=== PATIENT | male | born 1965 | race Caucasian/White ===

== ENCOUNTER 2021-04-25 06:13 | Outpatient (REF) | payer OTHER, SELFPAY ==
[2021-04-25 06:34] LABS: MANUAL DIFF FLAG NO
[2021-04-25 07:20] LABS: Basophils Absolute Auto 0.1 X10*3/uL (0.0-0.2); Basophils Percent Auto 0.7 % (0-2); Eosinophils Absolute Auto 0.3 X10*3/uL (0.0-0.4); Eosinophils Percent Auto 3.5 % (0-4); Hematocrit 45.2 % (42-52); Hemoglobin 15.6 g/dl (14.0-18.0); Imm Gran Abs Auto 0.02 X10*3/uL (0.00-0.03); Imm Gran Pct Auto 0.3 % (0.0-0.4); Lymphocytes Absolute Auto 2.5 X10*3/uL (1.2-4.9); Lymphocytes Percent Auto 32.1 % (20-40); Mean Corpuscular HGB Conc 34.5 g/dl (31.0-36.0); Mean Corpuscular Hemoglobin 31.7 pg (27.0-33.0); Mean Corpuscular Volume 91.9 fL (80-98); Monocytes Absolute Auto 0.5 X10*3/uL (0.1-1.2); Monocytes Percent Auto 5.9 % (2-11); Neutrophils Absolute Auto 4.4 X10*3/uL (2.0-8.3); Neutrophils Percent Auto 57.5 % (45-73); Platelet Count 216 X10*3/uL (160-400); Red Blood Count 4.92 X10*6/uL (4.60-5.80); Red Cell Distribution Width 12.2 % (11.0-16.0); White Blood Count 7.7 X10*3/uL (4.8-10.8)
[2021-04-25 07:57] LABS: Alanine Aminotransferase 31 U/L (0-40); Alkaline Phosphatase 65 U/L (39-117); Anion Gap 14 (12-20); Aspartate Amino Transferase 17 U/L (5-37); Bilirubin Total 0.5 mg/dL (0.0-1.0); Blood Urea Nitrogen 14 mg/dL (9-16); Carbon Dioxide 24 mmol/L (22-29); Chloride 106 mmol/L (96-108); Cholesterol 180 mg/dL; Estimated Glomerular Filt Rate > 60; Glucose Fasting 107 mg/dL (60-99); HDL Cholesterol 44 mg/dL; LDL Cholesterol Calculated 113 mg/dl; Potassium 4.8 mmol/L (3.3-5.1); Sodium 139 mmol/L (135-145); Total Protein 7.2 g/dL (6.5-8.0); Triglycerides 119 mg/dL
[2021-04-25 08:07] LABS: TSH reflex Free T4 1.41 uIU/mL (0.32-4.0); Vitamin D 25-OH Total 22.8 ng/mL (>30)
[2021-04-25 09:55] LABS: Appearance Urine CLEAR; Color Urine YELLOW; Glucose Urine UA NEG (NEG); Leukocyte Esterase Urine NEG (NEG); Nitrite Urine NEG (NEG); Specific Gravity - Urine 1.025 (1.005-1.025); Urine Blood NEG (NEG); Urine Ketones NEG (NEG); Urine Protein NEG (NEG-TRACE)
== END 2021-04-25 06:14 | disposition home or self-care (01) ==
LOC: HO.LAB 06:13
PROVIDERS: PCP Internal Medicine; Visit Provider Internal Medicine
DX: I10 Essential (primary) hypertension (principal); E78.00 Pure hypercholesterolemia, unspecified; E55.9 Vitamin D deficiency, unspecified
CPT/HCPCS: 36415; 80053; 80061; 81003; 82306; 84443; 85025

== ENCOUNTER 2022-06-16 06:08 | Outpatient (REF) | payer OTHER, SELFPAY ==
[2022-06-16 06:12] LABS: MANUAL DIFF FLAG NO
[2022-06-16 07:36] LABS: Basophils Absolute Auto 0.1 X10*3/uL (0.0-0.2); Basophils Percent Auto 0.5 % (0-2); Eosinophils Absolute Auto 0.4 X10*3/uL (0.0-0.4); Eosinophils Percent Auto 3.7 % (0-4); Hematocrit 47.8 % (42.0-52.0); Hemoglobin 15.8 g/dl (14.0-18.0); Imm Gran Abs Auto 0.04 X10*3/uL (0.00-0.03); Imm Gran Pct Auto 0.4 % (0.0-0.4); Lymphocytes Absolute Auto 2.5 X10*3/uL (1.2-4.9); Lymphocytes Percent Auto 26.1 % (20-40); Mean Corpuscular HGB Conc 33.1 g/dl (31.0-36.0); Mean Corpuscular Hemoglobin 30.7 pg (27.0-33.0); Mean Platelet Volume 9.7 fL (9.4-12.4); Monocytes Absolute Auto 0.6 X10*3/uL (0.1-1.2); Monocytes Percent Auto 6.6 % (2-11); Neutrophils Percent Auto 62.7 % (45-73); Platelet Count 281 X10*3/uL (160-400); Red Blood Count 5.14 X10*6/uL (4.60-5.80); Red Cell Distribution Width 11.9 % (11.0-16.0); White Blood Count 9.6 X10*3/uL (4.8-10.8)
[2022-06-16 07:57] LABS: Alanine Aminotransferase 42 U/L (0-40); Albumin Level 4.2 g/dL (3.5-5.0); Alkaline Phosphatase 73 U/L (39-117); Anion Gap 15 (12-20); Aspartate Amino Transferase 21 U/L (5-37); Bilirubin Total 0.3 mg/dL (0.0-1.0); Blood Urea Nitrogen 21 mg/dL (9-16); Calcium 9.3 mg/dL (8.4-10.2); Carbon Dioxide 26 mmol/L (22-29); Chloride 105 mmol/L (96-108); Cholesterol 189 mg/dL; Estimated Glomerular Filt Rate > 60; Glucose Fasting 116 mg/dL (60-99); HDL Cholesterol 40 mg/dL; LDL Cholesterol Calculated 117 mg/dl; Potassium 5.1 mmol/L (3.3-5.1); Sodium 141 mmol/L (135-145); Total Protein 7.5 g/dL (6.5-8.0); Triglycerides 160 mg/dL
[2022-06-16 08:19] LABS: Prostate Specific Antigen Scr 0.54 ng/mL (<0.05-4.0); TSH reflex Free T4 1.31 uIU/mL (0.32-4.0)
[2022-06-16 09:03] LABS: Appearance Urine Clear; Color Urine Yellow; Glucose Urine UA Negative (Negative); Leukocyte Esterase Urine Negative (Negative); Nitrite Urine Negative (Negative); PH 5.5 (5.0-9.0); Specific Gravity - Urine 1.025 (1.005-1.025); Urine Blood Negative (Negative); Urine Ketones Negative (Negative); Urine Protein Negative (Neg-Trace)
[2022-06-16 09:22] LABS: Estimated Average Glucose 114 mg/dL; Hemoglobin A1c % 5.6 %
[2022-06-16 09:45] LABS: Vitamin D 25-OH Total 27.6 ng/mL (>30)
== END 2022-06-16 06:09 | disposition home or self-care (01) ==
LOC: HO.LAB 06:08
PROVIDERS: PCP Internal Medicine; Visit Provider Internal Medicine
DX: Z00.00 Encounter for general adult medical examination without abnormal findings (principal); Z12.5 Encounter for screening for malignant neoplasm of prostate; E78.00 Pure hypercholesterolemia, unspecified; R73.01 Impaired fasting glucose; I10 Essential (primary) hypertension; E55.9 Vitamin D deficiency, unspecified
CPT/HCPCS: 36415; 80053; 80061; 81003; 82306; 83036; 84153; 84443; 85025

== ENCOUNTER 2022-06-24 15:42 | Outpatient (AMB) | payer OTHER, SELFPAY ==
[2022-06-24 15:52] VITALS: BP 130/70; TEMP 36.1; BMI 40.6
--- NOTE | 2022-06-24 15:52 | A.OFFPC_ITS ---
Vital Signs 06/24/22 15:52 Height 5 ft 6 in Weight 252 lb 2 oz BMI 40.6 BP 130/70 Blood Pressure Location Lt brachial Position Sitting Temp 96.9 F Temp Source Skin Intake Visit Reasons: HTN, hyperlipidemia Intake Note: Patient here for a follow up HTN, Hyperlipidemia Electronics Technician Required: No Accompanied by: Self / Same As Patient Allergies No Known Allergies Allergy (Verified 06/24/23 17:00) Medication List - Last Reconciled 06/24/22 by Ruben Kay MD lisinopril 20 mg PO DAILY 90 days simvastatin 20 mg PO BEDTIME 90 days Tobacco use date assessed: 10/11/21 HPI HTN, hyperlipidemia HPI Details Patient comes in today for his follow up visit States that he feels okay Denies any headaches or dizziness Denies any chest pains, no SOB No nausea/vomiting, no abdominal pain No change in bowel habits noted Had his follow up labs done last week - to discuss his results [facility] Medical History Impaired fasting glucose Morbid obesity with BMI of 40.0-44.9, adult Pure hypercholesterolemia Benign essential hypertension Hyperlipidemia Surgical History H/O left inguinal hernia repair H/O vasectomy H/O colonoscopy (~08/27/16) Family History Mother No problems noted. Father Diabetes Social History Housing: House Alcohol intake: never Patient Tobacco Use Status: Never used Tobacco e-Cigarette/Vaping Use: Never Used Second Hand Smoke Exposure: Yes service: No Current occupational status: employed Current occupational exposures/hazards: No Cognitive needs: No Hearing needs: No Vision needs: No Questionnaire PHQ-9 Over the last 2 weeks, how often have you been bothered by any of the following problems? Depression Screening Interpretation: Negative Source: Developed by Drs. Blayne Mao, Elizabeth Herr, Jabari Sanchez and colleagues, with an educational subhash from [employer]. Thrive Questionnaire Date Thrive assessed: 10/11/21 NORIS-7 AMB Questionnaire NORIS-7 Date NORIS - 7 assessed: 10/11/21 Source: Developed by Drs. Blayne Mao, Elizabeth Herr, Jabari Sanchez and colleagues, with an educational subhash from [employer]. Review of Systems Const Denies chills, Denies fatigue, Denies fever(s) and Denies headache(s) ENT Denies dysphagia, Denies dizziness, Denies otalgia, Denies headache(s), Denies odynophagia, Denies sinus pain and Denies sore throat Card Denies chest pain, Denies palpitations and Denies dyspnea Resp Denies cough and Denies dyspnea GI Denies abdominal pain, Denies constipation, Denies dysphagia, Denies heartburn, Denies diarrhea, Denies nausea, Denies odynophagia and Denies vomiting Denies dysuria, Denies nocturia and Denies urinary frequency Neuro Denies dizziness and Denies headache(s) Endo Denies fatigue and Denies palpitations Physical exam (Primary Care) Vital Signs: Last Vital Signs Temp 96.9 F 06/24/22 15:52 BP 130/70 06/24/22 15:52 BMI result Body Mass Index 40.6 Tobacco/Smoking Status: Tobacco use Status Tobacco use date assessed 10/11/21 06/24/22 15:57 Patient Tobacco Use Status Never used Tobacco 06/24/22 15:57 e-Cigarette/Vaping Use Never Used 06/24/22 15:57 Depression Screening Interpretation: Negative Thrive Assessment: Date of Thrive Assessment Date Thrive assessed 10/11/21 06/24/22 15:57 Const General: no acute distress and alert HENMT Ears: TM's normal bilaterally and EAC's normal Throat: Yes posterior oropharynx normal and Yes tonsils normal (no TP congestion noted) Neck Neck: Yes no lymphadenopathy and Yes supple Resp Auscultation: clear to auscultation bilaterally, no rales and no wheezes Cardio Rate: regular rate Rhythm: regular rhythm Heart sounds: no murmurs GI Palpation (GI): Soft to palpation, nontender and No hepatosplenomegaly present Back/Spine/Pelvis Thoracic/Lumbar Spine: No lumbar spinal tenderness Skin Rashes: no rashes Extrem General: Yes no clubbing, cyanosis or edema Office Procedures Flu Questionnaire Does the patient have a severe egg allergy?: No Does the patient have severe life threatening allergies?: No Does the patient have a fever or illness today?: No Has the patient ever had Guillain-[place] Syndrome?: No Has the patient ever had any past reaction to a flu shot?: No Immunizations flu vacc [id number] 6mos up(PF) 60 mcg(15 mcgx4)/0.5 mL IM syringe Performing Provider: Ruben Kay MD [facility] Documented (not given) by: ARIA Jackson on 06/24/22 15:58 Reason Not Given: Patient Refused Results Reviewed Results Reviewed: Laboratory Tests 06/16/22 06/16/22 06/16/22 06:11 06:11 06:11 WBC 9.6 Hgb 15.8 Hct 47.8 Plt Count 281 Sodium 141 Potassium 5.1 Creatinine 1.05 Estimated GFR > 60 Fasting Glucose 116 H Hemoglobin A1c % 5.6 Calcium 9.3 AST 21 ALT 42 H Triglycerides 160 Cholesterol 189 LDL Cholesterol, Calc 117 HDL Cholesterol 40 PSA Screen 0.54 25-OH Vitamin D Total 27.6 TSH 1.31 Ur Specific [place] Urine Protein Urine Glucose (UA) Urine Blood 06/16/22 06:12 WBC Hgb Hct Plt Count Sodium Potassium Creatinine Estimated GFR Fasting Glucose Hemoglobin A1c % Calcium AST ALT Triglycerides Cholesterol LDL Cholesterol, Calc HDL Cholesterol PSA Screen 25-OH Vitamin D Total TSH Ur Specific [place] 1.025 Urine Protein Negative Urine Glucose (UA) Negative Urine Blood Negative Assessment and Plan Assessment & Plan (1) Benign essential hypertension: Code(s): I10 - Essential (primary) hypertension Plan: Reinforced low sodium diet - goal is systolic BP of 120 to 130 mm or less Continue Lisinopril 20 mg QD (2) Pure hypercholesterolemia: Code(s): E78.00 - Pure hypercholesterolemia, unspecified Plan: Results of his labs done last week reviewed and discussed with patient - advised that his LDL cholesterol is still around 117 mg/dl and review of his cholesterol numbers over the past 3 to 4 years show that they are mostly unchanged Reinforced low cholesterol diet Will increase his Simvastatin from 20 mg to 40 mg Q HS Will recheck his labs and fasting lipids in 6 months for follow up (3) Impaired fasting glucose: Code(s): R73.01 - Impaired fasting glucose Plan: HgbA1c was normal at 5.6% on his labs done last week Reinforced low calorie diet/exercise as tolerated Will recheck his HgbA1c in 6 months for follow up (4) Morbid obesity with BMI of 40.0-44.9, adult: Code(s): E66.01 - Morbid (severe) obesity due to excess calories; Z68.41 - Body mass index [BMI] 40.0-44.9, adult Plan: Reinforced diet/exercise as tolerated/lose weight Plan To return in 6 months for his next annual physical examination Orders: Orders Influenza [id number] Immunization 06/24/22 Z23 - Encounter for immunization Complete Blood Count Auto Diff 6 Months I10 - Essential (primary) hypertension, Z00.00 - Encounter for general adult medical examination without abnormal findings Comprehensive [facility]. Panel Fast 6 Months E78.00 - Pure hypercholesterolemia, unspecified, Z00.00 - Encounter for general adult medical examination without abnormal findings Lipid Panel 6 Months E78.00 - Pure hypercholesterolemia, unspecified, Z00.00 - Encounter for general adult medical examination without abnormal findings TSH reflex Free T4 6 Months E78.00 - Pure hypercholesterolemia, unspecified, Z00.00 - Encounter for general adult medical examination without abnormal findings UA CC w/rflx Micro + Cult 6 Months R30.0 - Dysuria, Z00.00 - Encounter for general adult medical examination without abnormal findings Hemoglobin A1c 6 Months Z00.00 - Encounter for general adult medical examination without abnormal findings, R73.01 - Impaired fasting glucose Prostate Specific Antigen Scr 6 Months Z00.00 - Encounter for general adult medical examination without abnormal findings Vitamin D 25-OH Total 6 Months E55.9 - Vitamin D deficiency, unspecified, Z00.00 - Encounter for general adult medical examination without abnormal findings Medications: Changed From simvastatin 20 mg PO BEDTIME 90 days 90 tabs 3RF To simvastatin 40 mg PO BEDTIME 90 tabs 3RF 90 days Coding Level of Care Code Est Pt Level 4 (59886) Diagnoses Benign essential hypertension I10 Pure hypercholesterolemia E78.00 Impaired fasting glucose R73.01 Morbid obesity with BMI of 40.0-44.9, adult E66.01; Z68.41
== END 2022-06-24 16:36 | disposition home or self-care (01) ==
LOC: HO.HMGH 15:42
PROVIDERS: PCP Internal Medicine; Visit Provider Internal Medicine
DX: I10 Essential (primary) hypertension (principal); E78.00 Pure hypercholesterolemia, unspecified; E66.01 Morbid (severe) obesity due to excess calories; Z68.41 Body mass index [BMI] 40.0-44.9, adult; R73.01 Impaired fasting glucose
CPT/HCPCS: 99214

== ENCOUNTER 2023-01-12 06:14 | Outpatient (REF) | payer OTHER, SELFPAY ==
[2023-01-12 06:28] LABS: MANUAL DIFF FLAG NO
[2023-01-12 07:28] LABS: Basophils Absolute Auto 0.1 X10*3/uL (0.0-0.2); Basophils Percent Auto 0.6 % (0-2); Eosinophils Absolute Auto 0.2 X10*3/uL (0.0-0.4); Eosinophils Percent Auto 1.9 % (0-4); Hematocrit 47.9 % (42.0-52.0); Imm Gran Abs Auto 0.02 X10*3/uL (0.00-0.03); Imm Gran Pct Auto 0.2 % (0.0-0.4); Lymphocytes Absolute Auto 2.1 X10*3/uL (1.2-4.9); Lymphocytes Percent Auto 23.2 % (20-40); Mean Corpuscular HGB Conc 33.4 g/dl (31.0-36.0); Mean Corpuscular Hemoglobin 30.9 pg (27.0-33.0); Mean Corpuscular Volume 92.6 fL (80.0-98.0); Mean Platelet Volume 9.8 fL (9.4-12.4); Monocytes Absolute Auto 0.4 X10*3/uL (0.1-1.2); Monocytes Percent Auto 4.2 % (2-11); Neutrophils Absolute Auto 6.3 x10*3/uL (2.0-8.3); Neutrophils Percent Auto 69.9 % (45-73); Platelet Count 233 X10*3/uL (160-400); Red Blood Count 5.17 X10*6/uL (4.60-5.80); Red Cell Distribution Width 12.3 % (11.0-16.0); White Blood Count 9.1 X10*3/uL (4.8-10.8)
[2023-01-12 07:43] LABS: Estimated Average Glucose 111 mg/dL; Hemoglobin A1c % 5.5 %
[2023-01-12 08:12] LABS: Alanine Aminotransferase 31 U/L (0-40); Alkaline Phosphatase 62 U/L (39-117); Anion Gap 12 (12-20); Aspartate Amino Transferase 16 U/L (5-37); Bilirubin Total 0.7 mg/dL (0.0-1.0); Blood Urea Nitrogen 15 mg/dL (9-16); Carbon Dioxide 28 mmol/L (22-29); Chloride 104 mmol/L (96-108); Cholesterol 175 mg/dL; Estimated Glomerular Filt Rate > 60; Glucose Fasting 114 mg/dL (60-99); HDL Cholesterol 45 mg/dL; LDL Cholesterol Calculated 104 mg/dl; Potassium 4.8 mmol/L (3.3-5.1); Sodium 139 mmol/L (135-145); Total Protein 7.6 g/dL (6.5-8.0); Triglycerides 130 mg/dL
[2023-01-12 08:32] LABS: TSH reflex Free T4 1.45 uIU/mL (0.32-4.0); Vitamin D 25-OH Total 29.7 ng/mL (>30)
[2023-01-12 08:36] LABS: Prostate Specific Antigen Scr 0.42 ng/mL (<0.05-4.0)
[2023-01-12 09:03] LABS: Appearance Urine Clear; Color Urine Yellow; Glucose Urine UA Negative (Negative); Leukocyte Esterase Urine Negative (Negative); Nitrite Urine Negative (Negative); PH 5.5 (5.0-9.0); Urine Blood Negative (Negative); Urine Ketones Negative (Negative); Urine Protein Negative (Neg-Trace)
== END 2023-01-12 06:15 | disposition home or self-care (01) ==
LOC: HO.LAB 06:14
PROVIDERS: PCP Internal Medicine; Visit Provider Internal Medicine
DX: Z00.00 Encounter for general adult medical examination without abnormal findings (principal); Z12.5 Encounter for screening for malignant neoplasm of prostate; R30.0 Dysuria; R73.01 Impaired fasting glucose; E55.9 Vitamin D deficiency, unspecified; I10 Essential (primary) hypertension; E78.00 Pure hypercholesterolemia, unspecified
CPT/HCPCS: 36415; 80053; 80061; 81003; 82306; 83036; 84153; 84443; 85025

== ENCOUNTER 2023-06-17 06:02 | Outpatient (REF) | payer OTHER, SELFPAY ==
[2023-06-17 07:11] LABS: Estimated Average Glucose 117 mg/dL; Hemoglobin A1c % 5.7 % (<6.0)
[2023-06-17 07:16] LABS: Alanine Aminotransferase 35 U/L (0-40); Albumin Level 4.1 g/dL (3.5-5.0); Alkaline Phosphatase 68 U/L (39-117); Anion Gap 12 (12-20); Aspartate Amino Transferase 21 U/L (5-37); Bilirubin Total 0.7 mg/dL (0.0-1.0); Blood Urea Nitrogen 15 mg/dL (9-16); Calcium 9.7 mg/dL (8.4-10.2); Carbon Dioxide 28 mmol/L (22-29); Chloride 106 mmol/L (96-108); Cholesterol 160 mg/dL (<200); Estimated Glomerular Filt Rate > 60; Glucose Fasting 106 mg/dL (60-99); HDL Cholesterol 43 mg/dL (>40); LDL Cholesterol Calculated 92 mg/dL (<100); Potassium 4.6 mmol/L (3.3-5.1); Sodium 141 mmol/L (135-145); Total Protein 7.8 g/dL (6.5-8.0); Triglycerides 129 mg/dL (<150)
== END 2023-06-17 06:03 | disposition home or self-care (01) ==
LOC: HO.LAB 06:02
PROVIDERS: PCP Internal Medicine; Visit Provider Internal Medicine
DX: R73.01 Impaired fasting glucose (principal); E78.00 Pure hypercholesterolemia, unspecified
CPT/HCPCS: 36415; 80053; 80061; 83036

== ENCOUNTER 2023-06-24 16:01 | Outpatient (AMB) | payer OTHER, SELFPAY ==
[2023-06-24 16:03] VITALS: BP 124/88; PULSE 82; O2SAT 96; BMI 41.1
--- NOTE | 2023-06-24 16:03 | MHC.PC.OV ---
Vital Signs 06/24/23 16:03 Height 5 ft 6 in Weight 254 lb 6 oz BMI 41.1 BP 124/88 Blood Pressure Location Lt brachial Position Sitting Pulse 82 Pulse Source Pulse Oximeter Pulse Oximetry (%) 96 Oxygen Delivery Method Room Air Intake Visit Reasons: HTN, hyperlipidemia, IFG Instant Print Operator Required: No Accompanied by: Self / Same As Patient Allergies No Known Allergies Allergy (Verified 06/24/23 17:00) Medication List - Last Reconciled 06/24/23 by Ruben Kay MD lisinopril 20 mg PO DAILY 90 days simvastatin 40 mg PO BEDTIME 90 days Tobacco use date assessed: 06/24/23 Dental Screening Dental Screen Date: 06/24/23 Did you have a dental visit in the last 12 months?: Yes Did you have a dental problem in the last 6 months where you did not have access to dental care?: No Was dental information given to patient?: Patient has dentist HPI HTN, hyperlipidemia, IFG HPI Details Patient comes in today for his follow-up visit States that he feels okay He denies any headaches or dizziness Denies any chest pains, no shortness of breath No nausea/vomiting, no abdominal pain No change in bowel habits noted Had his follow-up labs done last week - to discuss his results 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 but was advised that he needs to get a sleep study done to rule out sleep apnea to be 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 Patient states that he has no daytime somnolence but does admit to feeling chronically fatigued States that he has been advised by family members that he snores heavily when he sleeps at night and admits that he does have a tendency to fall asleep easily whenever he is sitting down [facility] Medical History Impaired fasting glucose Morbid obesity with BMI of 40.0-44.9, adult Pure hypercholesterolemia Benign essential hypertension Hyperlipidemia Surgical History H/O left inguinal hernia repair H/O vasectomy H/O colonoscopy (~08/27/16) Family History Mother No problems noted. Father Diabetes Social History Housing: House Alcohol intake: never Patient Tobacco Use Status: Never used Tobacco e-Cigarette/Vaping Use: Never Used Second Hand Smoke Exposure: Yes service: No Current occupational status: employed Current occupational exposures/hazards: No Cognitive needs: No Hearing needs: No Vision needs: No Questionnaire PHQ-9 Over the last 2 weeks, how often have you been bothered by any of the following problems? 1. Little interest or pleasure in doing things: not at all 2. Feeling down, depressed, or hopeless: not at all 3. Trouble falling or staying asleep, or sleeping too much: not at all 4. Feeling tired or having little energy: not at all 5. Poor appetite or overeating: not at all 6. Feeling bad about yourself - or that you are a failure or have let yourself or your family down: not at all 7. Trouble concentrating on things, such as reading the newspaper or watching television: not at all 8. Moving or speaking so slowly that other people could have noticed. Or the opposite - being so fidgety or restless that you have been moving around a lot more than usual: not at all 9. Thoughts that you would be better off or of hurting yourself in some way: not at all Total score: 0 Depression Screening Interpretation: Negative Depression Screening Done: Yes 45620 - PHQ-9 Billing: Yes Source: Developed by Drs. Blayne Mao, Elizabeth Herr, Jabari Sanchez and colleagues, with an educational subhash from [employer]. Thrive Questionnaire Date Thrive assessed: 06/24/23 I am a: Patient What is your living situation today?: I have a steady place to live Within the past 12 months, did the food you bought not last and you didn't have the money to get more?: Never true Within the past 12 months, did you worry whether your food would run out before you got money to buy more?: Never true Do you have trouble paying for medicines?: No Do you have trouble getting transportation to medical appointments?: No Do you have trouble paying your heating and electricity bill?: No Do you have trouble taking care of your child, family member or friend?: No Do you have trouble with day-to-day activities such as bathing, preparing meals, shopping, managing finances, etc.?: No Are you currently unemployed and looking for a job?: No Are you interested in more education?: No Please select the resources that you would like help with: None Currently or been in a relationship where the following occur: no concerns reported AUDIT C Alcohol Use Questionnaire (AUDIT-C) 1. How often do you have a drink containing alcohol?: Never 3. How often do you have six or more drinks on one occasion?: Never Total Score: 0 Score Reviewed/Action Taken: Yes NORIS-7 AMB Questionnaire NORIS-7 Date NORIS - 7 assessed: 06/24/23 Feeling nervous, anxious, or on edge: 0 = Not at all Not being able to stop or control worryin = Not at all Worrying too much about different things: 0 = Not at all Trouble relaxin = Not at all Being so restless that it is hard to sit still: 0 = Not at all Becoming easily annoyed or irritable: 0 = Not at all Feeling afraid as if something awful might happen: 0 = Not at all Total NORIS-7 score (0-4 normal; 5-9 mild; 10-14 moderate; 15-21 severe): 0 Source: Developed by Drs. Blayne Mao, Elizabeth Herr, Jabari Sanchez and colleagues, with an educational subhash from [employer]. Review of Systems Const Denies chills, Denies daytime sleepiness, Denies difficulty sleeping, Reports fatigue, Denies fever(s), Denies headache(s), Reports snoring and Denies stops breathing during sleep ENT Denies dysphagia, Denies dizziness, Denies otalgia, Denies headache(s), Denies neck pain, Denies odynophagia and Denies sore throat Card Denies chest pain, Denies rapid heart rate, Denies irregular heart rhythm, Denies palpitations and Denies dyspnea Resp Denies chest congestion, Denies cough, Denies dyspnea, Reports snoring and Denies wheezing GI Denies abdominal pain, Denies constipation, Denies dysphagia, Denies heartburn, Denies diarrhea, Denies nausea, Denies odynophagia and Denies vomiting Denies hematuria, Denies difficulty urinating, Denies dysuria, Denies urinary frequency and Denies urinary urgency Musc Denies back pain and Denies neck pain Skin/Breast Denies rash Neuro Denies dizziness, Denies headache(s) and Denies paresthesias Endo Reports fatigue and Denies palpitations Aller/Immun Denies wheezing Physical exam (Primary Care) Vital Signs: Last Vital Signs Pulse 82 06/24/23 16:03 BP 124/88 06/24/23 16:03 Pulse Ox 96 06/24/23 16:03 Oxygen Delivery Method Room Air 06/24/23 16:03 BMI result Body Mass Index 41.1 Tobacco/Smoking Status: Tobacco use Status Tobacco use date assessed 06/24/23 06/24/23 16:07 Patient Tobacco Use Status Never used Tobacco 06/24/23 16:07 e-Cigarette/Vaping Use Never Used 06/24/23 16:07 PHQ-9: PHQ-9 Score PHQ-9: Total score 0 06/24/23 17:03 Depression Screening Interpretation: Negative Thrive Assessment: Date of Thrive Assessment Date Thrive assessed 06/24/23 06/24/23 16:07 Currently or been in a relationship where the following occur: no concerns reported Const General: no acute distress and alert HENMT Ears: TM's normal bilaterally and EAC's normal Throat: Yes posterior oropharynx normal and Yes tonsils normal (no TP congestion) Neck Neck: Yes no lymphadenopathy and Yes supple Thyroid: Thyroid normal Resp Auscultation: clear to auscultation bilaterally, no rales and no wheezes Cardio Rate: regular rate Rhythm: regular rhythm Heart sounds: no murmurs GI Palpation (GI): Soft to palpation and nontender Auscultation: normal bowel sounds General: Yes no CVA tenderness Back/Spine/Pelvis Back: no CVA tenderness Thoracic/Lumbar Spine: thoracic and lumbar spine normal to inspection Skin Rashes: no rashes Extrem General: Yes no clubbing, cyanosis or edema Results Reviewed Results Reviewed: Laboratory Tests 06/17/23 06:21 Sodium 141 Potassium 4.6 Creatinine 0.89 Estimated GFR > 60 Fasting Glucose 106 H Hemoglobin A1c % 5.7 Calcium 9.7 AST 21 ALT 35 Triglycerides 129 Cholesterol 160 LDL Cholesterol, Calc 92 HDL Cholesterol 43 Assessment and Plan Assessment & Plan (1) Benign essential hypertension: Code(s): I10 - Essential (primary) hypertension Plan: Reinforced low sodium diet - goal is systolic BP of 120 to 130 mm or less Continue Lisinopril 20 mg QD (2) Pure hypercholesterolemia: Code(s): E78.00 - Pure hypercholesterolemia, unspecified Plan: Results of his labs done last week reviewed and discussed with patient Reinforced low cholesterol diet Continue Simvastatin 40 mg Q HS - Rx refilled Will recheck his labs and fasting lipids in 6 months for follow up (3) Impaired fasting glucose: Code(s): R73.01 - Impaired fasting glucose Plan: FBS was slightly elevated at 106 mg/dl but his HgbA1c was still normal at 5.7% on his labs done last week Reinforced low calorie diet/exercise as tolerated (4) Loud snoring: Comment: Patient scored 6 on his STOP-Bang questionnaire Code(s): R06.83 - Snoring Plan: Patient scored 6 on his STOP-Bang questionnaire, which puts him in the high-risk category for sleep apnea He has also been advised to get a sleep study done for him to be 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 Will refer patient for a home sleep study for further evaluation (5) Morbid obesity with BMI of 40.0-44.9, adult: Code(s): E66.01 - Morbid (severe) obesity due to excess calories; Z68.41 - Body mass index [BMI] 40.0-44.9, adult Plan: Reinforced diet/exercise as tolerated/lose weight Plan To return in 6 months for his next annual physical examination Orders: Orders RT home sleep study 06/24/23 E66.01 - Morbid (severe) obesity due to excess calories, I10 - Essential (primary) hypertension, R06.83 - Snoring, Z68.41 - Body mass index [BMI] 40.0-44.9, adult Complete Blood Count Auto Diff 6 Months I10 - Essential (primary) hypertension UA CC w/rflx Micro + Cult 6 Months R30.0 - Dysuria Vitamin D 25-OH Total 6 Months E55.9 - Vitamin D deficiency, unspecified Comprehensive [place]. Panel Fast 6 Months E78.00 - Pure hypercholesterolemia, unspecified Lipid Panel 6 Months E78.00 - Pure hypercholesterolemia, unspecified TSH reflex Free T4 6 Months E78.00 - Pure hypercholesterolemia, unspecified Prostate Specific Antigen Scr 6 Months Z00.00 - Encounter for general adult medical examination without abnormal findings Hemoglobin A1c 6 Months R73.01 - Impaired fasting glucose Medications: Refilled simvastatin 40 mg PO BEDTIME 90 days 90 tabs 3RF Coding Level of Care Code Est Pt Level 4 (53239) Diagnoses Benign essential hypertension I10 Pure hypercholesterolemia E78.00 Impaired fasting glucose R73.01 Loud snoring R06.83 Morbid obesity with BMI of 40.0-44.9, adult E66.01; Z68.41
== END 2023-06-24 17:15 | disposition home or self-care (01) ==
PROVIDERS: Visit Provider Internal Medicine
DX: I10 Essential (primary) hypertension (principal); E66.01 Morbid (severe) obesity due to excess calories; Z68.41 Body mass index [BMI] 40.0-44.9, adult; E78.00 Pure hypercholesterolemia, unspecified; R73.01 Impaired fasting glucose; R06.83 Snoring
CPT/HCPCS: 99214

== ENCOUNTER → 2023-08-18 15:51 | Outpatient (REF) | payer OTHER, SELFPAY | LOC: HO.SL 15:51 | PROVIDERS: PCP Internal Medicine; Visit Provider Internal Medicine | DX: G47.33 Obstructive sleep apnea (adult) (pediatric) (principal); R06.83 Snoring; I10 Essential (primary) hypertension; E66.01 Morbid (severe) obesity due to excess calories; Z68.41 Body mass index [BMI] 40.0-44.9, adult | CPT/HCPCS: 95806 ==

== ENCOUNTER → 2023-08-18 15:58 | Outpatient (BNV) | payer OTHER, SELFPAY | PROVIDERS: PCP Internal Medicine; Visit Provider Psychiatry & Neurology Neurology | DX: G47.33 Obstructive sleep apnea (adult) (pediatric) (principal) | CPT/HCPCS: 95806 ==

== ENCOUNTER 2023-09-15 15:51 | Outpatient (AMB) | payer OTHER, SELFPAY ==
[2023-09-15 15:56] VITALS: BP 130/88; PULSE 75; O2SAT 96; BMI 42.1
--- NOTE | 2023-09-15 15:56 | A.OFFPC_ITS ---
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 Required: No Accompanied by: Self / Same As Patient Allergies No Known Allergies Allergy (Verified 09/16/23 09:48) Medication List - Last Reconciled 09/16/23 by Ruben Kay MD CPAP (CPAP Machine/Device) As directed lisinopril 20 mg PO DAILY 90 days simvastatin 40 mg PO BEDTIME 90 days Tobacco use date assessed: 09/15/23 Dental Screening Dental Screen Date: 09/15/23 Did you have a dental visit in the last 12 months?: No Did you have a dental problem in the last 6 months where you did not have access to dental care?: No Was dental information given to patient?: Patient has dentist HPI Sleep study results HPI Details Patient comes in today mainly to go over the details of his recently done home sleep study States that he has tried calling the office a couple of times recently to find out more about his sleep study but was advised that he needs to come in for a visit He had a home sleep study done about a month ago on 08/18/2023 and was advised that he will be receiving a call back from Sleep Medicine in a couple of weeks regarding his results but he has yet to hear from them States that 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 and his sleep study report is required to complete his evaluation Recalls being advised on the phone from someone in the office a couple of weeks ago when he called that a prescription for a CPAP device will be submitted for him as his test came back positive for sleep apnea but he does not know where to go from here He now states that someone from a [employer] [employer] has been trying to reach him recently by text, phone and email but he has not responded to them yet as he is not sure who they are States that he feels okay and currently has no acute complaints or symptoms [facility] Medical History (Updated 09/16/23 @ 10:00 by Ruben Kay MD) Obstructive sleep apnea Impaired fasting glucose Morbid obesity with BMI of 40.0-44.9, adult Pure hypercholesterolemia Benign essential hypertension Hyperlipidemia Surgical History H/O left inguinal hernia repair H/O vasectomy H/O colonoscopy (~08/27/16) Family History Mother No problems noted. Father Diabetes Social History Housing: House Alcohol intake: never Patient Tobacco Use Status: Never used Tobacco e-Cigarette/Vaping Use: Never Used Second Hand Smoke Exposure: Yes service: No Current occupational status: employed Current occupational exposures/hazards: No Cognitive needs: No Hearing needs: No Vision needs: No Questionnaire PHQ-9 Over the last 2 weeks, how often have you been bothered by any of the following problems? 1. Little interest or pleasure in doing things: not at all 2. Feeling down, depressed, or hopeless: not at all 3. Trouble falling or staying asleep, or sleeping too much: not at all 4. Feeling tired or having little energy: not at all 5. Poor appetite or overeating: not at all 6. Feeling bad about yourself - or that you are a failure or have let yourself or your family down: not at all 7. Trouble concentrating on things, such as reading the newspaper or watching television: not at all 8. Moving or speaking so slowly that other people could have noticed. Or the opposite - being so fidgety or restless that you have been moving around a lot more than usual: not at all 9. Thoughts that you would be better off or of hurting yourself in some way: not at all Total score: 0 Depression Screening Interpretation: Negative Depression Screening Done: Yes 41949 - PHQ-9 Billing: Yes Source: Developed by Drs. Blayne Mao, Elizabeth Herr, Jabari Sanchez and colleagues, with an educational subhash from [employer]. Thrive Questionnaire Date Thrive assessed: 09/15/23 I am a: Patient What is your living situation today?: I have a steady place to live Within the past 12 months, did the food you bought not last and you didn't have the money to get more?: Never true Within the past 12 months, did you worry whether your food would run out before you got money to buy more?: Never true Do you have trouble paying for medicines?: No Do you have trouble getting transportation to medical appointments?: No Do you have trouble paying your heating and electricity bill?: No Do you have trouble taking care of your child, family member or friend?: No Do you have trouble with day-to-day activities such as bathing, preparing meals, shopping, managing finances, etc.?: No Are you currently unemployed and looking for a job?: No Are you interested in more education?: No Please select the resources that you would like help with: None Currently or been in a relationship where the following occur: no concerns reported THRIVE Score: 0 AUDIT C Alcohol Use Questionnaire (AUDIT-C) 1. How often do you have a drink containing alcohol?: Never 3. How often do you have six or more drinks on one occasion?: Never Total Score: 0 Score Reviewed/Action Taken: Yes NORIS-7 AMB Questionnaire NORIS-7 Date NORIS - 7 assessed: 09/15/23 Feeling nervous, anxious, or on edge: 0 = Not at all Not being able to stop or control worryin = Not at all Worrying too much about different things: 0 = Not at all Trouble relaxin = Not at all Being so restless that it is hard to sit still: 0 = Not at all Becoming easily annoyed or irritable: 0 = Not at all Feeling afraid as if something awful might happen: 0 = Not at all Total NORIS-7 score (0-4 normal; 5-9 mild; 10-14 moderate; 15-21 severe): 0 Source: Developed by Drs. Blayne Mao, Elizabeth Herr, Jabari Sanchez and colleagues, with an educational subhash from [employer]. Review of Systems Const Denies daytime sleepiness, Denies difficulty sleeping, Reports fatigue, Denies fever(s), Denies headache(s), Reports snoring and Denies stops breathing during sleep ENT Denies dysphagia, Denies dizziness, Denies otalgia, Denies headache(s), Denies neck pain, Denies odynophagia and Denies sore throat Card Denies chest pain, Denies rapid heart rate, Denies irregular heart rhythm, Denies palpitations and Denies dyspnea Resp Denies chest congestion, Denies cough, Denies dyspnea and Reports snoring GI Denies abdominal pain, Denies constipation, Denies dysphagia, Denies heartburn, Denies diarrhea, Denies nausea, Denies odynophagia and Denies vomiting Denies difficulty urinating, Denies dysuria and Denies urinary frequency Musc Denies back pain and Denies neck pain Skin/Breast Denies rash Neuro Denies dizziness and Denies headache(s) Endo Reports fatigue and Denies palpitations Physical exam (Primary Care) Vital Signs: Last Vital Signs Pulse 75 09/15/23 15:56 BP 130/88 09/15/23 15:56 Pulse Ox 96 09/15/23 15:56 Oxygen Delivery Method Room Air 09/15/23 15:56 BMI result Body Mass Index 42.1 Tobacco/Smoking Status: Tobacco use Status Tobacco use date assessed 09/15/23 09/15/23 15:58 Patient Tobacco Use Status Never used Tobacco 09/15/23 15:58 e-Cigarette/Vaping Use Never Used 09/15/23 15:58 PHQ-9: PHQ-9 Score PHQ-9: Total score 0 09/15/23 16:59 Depression Screening Interpretation: Negative Thrive Assessment: Date of Thrive Assessment Date Thrive assessed 09/15/23 09/15/23 15:58 Currently or been in a relationship where the following occur: no concerns reported Const General: no acute distress and alert HENMT Throat: Yes posterior oropharynx normal and Yes tonsils normal (no TP congestion) Neck Neck: Yes no lymphadenopathy and Yes supple Thyroid: Thyroid normal Resp Auscultation: clear to auscultation bilaterally, no rales and no wheezes Cardio Rate: regular rate Rhythm: regular rhythm Heart sounds: no murmurs GI Palpation (GI): Soft to palpation and nontender Auscultation: normal bowel sounds General: Yes no CVA tenderness Back/Spine/Pelvis Back: no CVA tenderness Extrem General: Yes no clubbing, cyanosis or edema Assessment and Plan Assessment & Plan (1) Obstructive sleep apnea: Comment: has moderately severe obstructive sleep apnea based on his home sleep study results - recommend CPAP therapy with auto PAP mode and setting of 6 - 20 cm Code(s): G47.33 - Obstructive sleep apnea (adult) (pediatric) Plan: Discussed with patient his home sleep study results from last month - he is a dvised that he does have moderately severe obstructive sleep apnea, and that he is recommended to start CPAP therapy with auto PAP mode and setting of 6 to 20 cm water Have advised him that we have already sent in an Rx for a CPAP device for him a couple of weeks ago and that the ones trying to reach out to him recently are probably the resident medical officer supplier trying to schedule him for delivery and set up of his device - he is urged to try reaching out to them JEFRY so he can get started with his CPAP therapy Plan To return as scheduled in December 2023 for his annual physical examination Coding Level of Care Code Est Pt Level 3 (50852) Diagnoses Obstructive sleep apnea G47.33
== END 2023-09-15 16:58 | disposition home or self-care (01) ==
PROVIDERS: PCP Internal Medicine; Visit Provider Internal Medicine
DX: G47.33 Obstructive sleep apnea (adult) (pediatric) (principal)
CPT/HCPCS: 99213

== ENCOUNTER 2023-12-22 06:01 | Outpatient (REF) | payer OTHER, SELFPAY ==
[2023-12-22 06:16] LABS: MANUAL DIFF FLAG NO
[2023-12-22 08:04] LABS: Appearance Urine Clear; Color Urine Yellow; Glucose Urine UA Negative (Negative); Leukocyte Esterase Urine Negative (Negative); Nitrite Urine Negative (Negative); PH 5.5 (5.0-9.0); Urine Blood Negative (Negative); Urine Ketones Negative (Negative); Urine Protein Negative (Neg-Trace)
[2023-12-22 08:05] LABS: Basophils Absolute Auto 0.1 X10*3/uL (0.0-0.2); Basophils Percent Auto 0.7 % (0-2); Eosinophils Absolute Auto 0.3 X10*3/uL (0.0-0.4); Eosinophils Percent Auto 3.2 % (0-4); Hematocrit 44.9 % (42.0-52.0); Imm Gran Abs Auto 0.02 X10*3/uL (0.00-0.03); Imm Gran Pct Auto 0.2 % (0.0-0.4); Lymphocytes Absolute Auto 2.3 X10*3/uL (1.2-4.9); Lymphocytes Percent Auto 27.6 % (20-40); Mean Corpuscular HGB Conc 33.4 g/dl (31.0-36.0); Mean Corpuscular Hemoglobin 31.3 pg (27.0-33.0); Mean Corpuscular Volume 93.5 fL (80.0-98.0); Monocytes Absolute Auto 0.5 X10*3/uL (0.1-1.2); Monocytes Percent Auto 5.3 % (2-11); Neutrophils Absolute Auto 5.3 x10*3/uL (2.0-8.3); Platelet Count 211 X10*3/uL (160-400); Red Cell Distribution Width 12.5 % (11.0-16.0); White Blood Count 8.4 X10*3/uL (4.8-10.8)
[2023-12-22 08:18] LABS: Estimated Average Glucose 114 mg/dL; Hemoglobin A1C 151.6696 umol/L; Hemoglobin A1c % 5.6 % (<6.0)
[2023-12-22 08:44] LABS: Alanine Aminotransferase 30 U/L (0-40); Albumin Level 3.9 g/dL (3.5-5.0); Alkaline Phosphatase 60 U/L (39-117); Anion Gap 13 (12-20); Aspartate Amino Transferase 17 U/L (5-37); Bilirubin Total 0.4 mg/dL (0.0-1.0); Blood Urea Nitrogen 15 mg/dL (9-16); Calcium 9.1 mg/dL (8.4-10.2); Carbon Dioxide 24 mmol/L (22-29); Chloride 109 mmol/L (96-108); Cholesterol 171 mg/dL (<200); Estimated Glomerular Filt Rate > 60; Glucose Fasting 101 mg/dL (60-99); HDL Cholesterol 44 mg/dL (>40); LDL Cholesterol Calculated 105 mg/dL (<100); Potassium 4.3 mmol/L (3.3-5.1); Sodium 142 mmol/L (135-145); Total Protein 7.1 g/dL (6.5-8.0); Triglycerides 111 mg/dL (<150)
[2023-12-22 08:57] LABS: Prostate Specific Antigen Scr 0.53 ng/mL (<0.05-4.0)
[2023-12-22 09:02] LABS: TSH reflex Free T4 1.15 uIU/mL (0.32-4.0); Vitamin D 25-OH Total 24.4 ng/mL (>30)
== END 2023-12-22 06:02 | disposition home or self-care (01) ==
LOC: HO.LAB 06:01
PROVIDERS: PCP Internal Medicine; Visit Provider Internal Medicine
DX: Z00.00 Encounter for general adult medical examination without abnormal findings (principal); Z12.5 Encounter for screening for malignant neoplasm of prostate; E78.00 Pure hypercholesterolemia, unspecified; R73.01 Impaired fasting glucose; R30.0 Dysuria; E55.9 Vitamin D deficiency, unspecified; I10 Essential (primary) hypertension
CPT/HCPCS: 36415; 80053; 80061; 81003; 82306; 83036; 84153; 84443; 85025

== ENCOUNTER 2023-12-28 17:24 | Outpatient (AMB) | payer OTHER, SELFPAY ==
[2023-12-28 17:27] VITALS: BP 158/64; PULSE 87; O2SAT 95; BMI 41.9
--- NOTE | 2023-12-28 17:27 | MHC.PC.OV ---
Vital Signs 12/28/23 17:27 12/28/23 18:13 Height 5 ft 6 in Weight 259 lb 6 oz BMI 41.9 BP 158/64 H 156/90 H Blood Pressure Location Lt brachial Lt brachial Position Sitting Sitting Pulse 87 Pulse Source Pulse Oximeter Pulse Oximetry (%) 95 Oxygen Delivery Method Room Air Intake Visit Reasons: pe Intake Note: Patient is here today for a physical. Coastal/Harbor Defense Officer Required: No Accompanied by: Self / Same As Patient Allergies No Known Allergies Allergy (Verified 12/28/23 18:02) Medication List - Last Reconciled 12/28/23 by Ruben Kay MD CPAP (CPAP Machine/Device) As directed lisinopril 20 mg PO DAILY 90 days simvastatin 40 mg PO BEDTIME 90 days Tobacco use date assessed: 09/15/23 Dental Screening Dental Screen Date: 09/15/23 HPI pe HPI Details Patient comes in today for his annual physical examination States that he feels okay He denies any headaches or dizziness Denies any chest pains, no SOB No nausea/vomiting, no abdominal pain No change in bowel habits noted He denies any acute urinary symptoms States that he has been using his CPAP device when sleeping at night regularly/daily for a few months now States that since he started using his CPAP device, he has been feeling significantly less fatigued and more energetic during the day He has also noticed that he wakes up much less often in the middle of the night and tends to sleep longer with regular use of his PAP device His family also thinks that he is snoring much less and less severely He needs both of his current Rx refilled Had his follow up labs done a few days ago - to discuss his results He had his screening colonoscopy first done back in 2016 - colonoscopy was normal and he was recommended to undergo a repeat colonoscopy in 10 years (due 2026) [facility] Medical History (Updated 12/28/23 @ 19:25 by Ruben Kay MD) Vitamin D deficiency Obstructive sleep apnea Impaired fasting glucose Morbid obesity with BMI of 40.0-44.9, adult Pure hypercholesterolemia Benign essential hypertension Hyperlipidemia Surgical History H/O left inguinal hernia repair H/O vasectomy H/O colonoscopy (~08/27/16) Family History Mother No problems noted. Father Diabetes Social History Housing: House Alcohol intake: never Patient Tobacco Use Status: Never used Tobacco e-Cigarette/Vaping Use: Never Used Second Hand Smoke Exposure: Yes service: No Current occupational status: employed Current occupational exposures/hazards: No Cognitive needs: No Hearing needs: No Vision needs: No Questionnaire Thrive Questionnaire Date Thrive assessed: 09/15/23 NORIS-7 AMB Questionnaire NORIS-7 Date NORIS - 7 assessed: 09/15/23 Source: Developed by Drs. Blayne Mao, Elizabeth Herr, Jabari Sanchez and colleagues, with an educational subhash from [employer]. Review of Systems Const Denies chills, Denies daytime sleepiness, Denies difficulty sleeping, Denies fatigue, Denies fever(s), Denies headache(s), Denies malaise, Denies stops breathing during sleep and Denies weakness Eyes Denies blurry vision, Denies change in vision, Denies irritation and Denies itchy eyes ENT Denies dysphagia, Denies dizziness, Denies otalgia, Denies headache(s), Denies nasal congestion, Denies neck pain, Denies odynophagia and Denies sore throat Card Denies chest pain, Denies rapid heart rate, Denies irregular heart rhythm, Denies palpitations and Denies dyspnea Resp Denies chest congestion, Denies cough, Denies dyspnea and Denies wheezing GI Denies abdominal pain, Denies bloating, Denies constipation, Denies dysphagia, Denies heartburn, Denies diarrhea, Denies nausea, Denies odynophagia and Denies vomiting Denies hematuria, Denies difficulty urinating, Denies dysuria, Denies urinary frequency and Denies urinary urgency Musc Denies back pain, Denies arthralgias, Denies joint swelling, Denies muscle weakness and Denies neck pain Skin/Breast Denies change in pigmentation, Denies lesions, Denies rash and Denies unusual bruising Neuro Denies dizziness, Denies headache(s), Denies paresthesias and Denies weakness Psych Denies difficulty concentrating Endo Denies fatigue and Denies palpitations Aller/Immun Denies itchy eyes and Denies wheezing Physical exam (Primary Care) Vital Signs: Last Vital Signs Pulse 87 12/28/23 17:27 BP 156/90 H 12/28/23 18:13 Pulse Ox 95 12/28/23 17:27 Oxygen Delivery Method Room Air 12/28/23 17:27 BMI result Body Mass Index 41.9 Tobacco/Smoking Status: Tobacco use Status Tobacco use date assessed 09/15/23 12/28/23 17:27 Patient Tobacco Use Status Never used Tobacco 12/28/23 17:27 e-Cigarette/Vaping Use Never Used 12/28/23 17:27 Thrive Assessment: Date of Thrive Assessment Date Thrive assessed 09/15/23 12/28/23 17:27 Const General: no acute distress, alert and awake Orientation/consciousness: patient oriented x3 HENMT Head: Yes normocephalic and Yes atraumatic Ears: external ears normal, TM's normal bilaterally and EAC's normal General nose exam: No nasal discharge present Face and sinus: Yes normal facial exam and Yes sinuses nontender Teeth and gingiva: dentition normal Throat: Yes posterior oropharynx normal and Yes tonsils normal (no TP congestion) Eyes Eyelids: Yes eyelids normal Conjunctivae: conjunctivae normal Pupils: Equal, round and reactive pupils present EOM: EOMs intact bilaterally Neck Neck: Yes no lymphadenopathy and Yes supple Thyroid: Thyroid normal Resp Auscultation: clear to auscultation bilaterally, no rales and no wheezes Cardio Rate: regular rate Rhythm: regular rhythm Heart sounds: no murmurs GI Palpation (GI): Soft to palpation, nontender and No hepatosplenomegaly present Auscultation: normal bowel sounds General: Yes no CVA tenderness Back/Spine/Pelvis Back: no CVA tenderness Thoracic/Lumbar Spine: thoracic and lumbar spine normal to inspection Skin Lesions: no lesions Rashes: no rashes Neuro General: patient oriented x3, moves all extremities, no focal motor deficits and CN's II-XI intact bilaterally Cranial nerves: Yes Equal, round and reactive pupils present Cognition (Neuro): normal cognition Gait exam (Neuro): Normal gait present Extrem General: Yes no clubbing, cyanosis or edema Results Reviewed Results Reviewed: Laboratory Tests 12/22/23 12/22/23 06:14 06:15 WBC 8.4 Hgb 15.0 Hct 44.9 Plt Count 211 Sodium 142 Potassium 4.3 Creatinine 0.84 Estimated GFR > 60 Fasting Glucose 101 H Hemoglobin A1c % 5.6 Calcium 9.1 D AST 17 ALT 30 Triglycerides 111 Cholesterol 171 LDL Cholesterol, Calc 105 H HDL Cholesterol 44 PSA Screen 0.53 25-OH Vitamin D Total 24.4 L TSH 1.15 Ur Specific [place] 1.020 Urine Protein Negative Urine Glucose (UA) Negative Urine Blood Negative Urine Nitrite Negative Ur Leukocyte Esterase Negative Assessment and Plan Assessment & Plan (1) Annual physical exam: Code(s): Z00.00 - Encounter for general adult medical examination without abnormal findings Plan: Results of his labs done a few days ago reviewed and discussed with patient He is up-to-date with his colon cancer screening - is due for repeat colonoscopy in 2026 (10 year recall) (2) Benign essential hypertension: Code(s): I10 - Essential (primary) hypertension Plan: Reinforced low sodium diet - goal is systolic BP of 120 to 130 mm or less Continue Lisinopril 20 mg QD Patient is reminded to monitor and check his blood pressure regularly (3) Pure hypercholesterolemia: Code(s): E78.00 - Pure hypercholesterolemia, unspecified Plan: He is advised that his cholesterol levels are okay (within normal range) but they are slightly higher than previous Reinforced low cholesterol diet Continue Simvastatin 40 mg Q HS - Rx refilled Will recheck his labs and fasting lipids in 6 months for follow up (4) Impaired fasting glucose: Code(s): R73.01 - Impaired fasting glucose Plan: FBS was again slightly elevated at 101 mg/dl on his recent labs but his HgbA1c was still normal at 5.6% Reinforced low calorie/low carb diet; exercise as tolerated (5) Vitamin D deficiency: Code(s): E55.9 - Vitamin D deficiency, unspecified Plan: He is advised that his Vitamin D level is again low on his recent labs Will start him on Vitamin D3 2000 units QD (6) Obstructive sleep apnea: Comment: has moderately severe obstructive sleep apnea based on his home sleep study results - recommend CPAP therapy with auto PAP mode and setting of 6 - 20 cm Code(s): G47.33 - Obstructive sleep apnea (adult) (pediatric) Plan: His home sleep study done in July 2023 revealed (+) moderately severe obstructive sleep apnea, and he was recommended to start CPAP therapy with auto PAP mode and setting of 6 to 20 cm water States that he has been using his CPAP device regularly for a few months now and feels that it has helped him a lot - notes that he has been feeling less fatigued and more energetic during the day He also seems to wakes up much less often in the middle of the night and tends to sleep longer with regular use of his PAP device Is advised to continue using his CPAP device regularly (7) Morbid obesity with BMI of 40.0-44.9, adult: Code(s): E66.01 - Morbid (severe) obesity due to excess calories; Z68.41 - Body mass index [BMI] 40.0-44.9, adult Plan: Reinforced diet/exercise as tolerated/lose weight Plan To return in 6 months for his next annual physical examination Orders: Orders Complete Blood Count Auto Diff 6 Months D64.9 - Anemia, unspecified Lipid Panel 6 Months E78.00 - Pure hypercholesterolemia, unspecified UA CC w/rflx Micro + Cult 6 Months R30.0 - Dysuria Comprehensive [place]. Panel Fast 6 Months E78.00 - Pure hypercholesterolemia, unspecified TSH reflex Free T4 6 Months E78.00 - Pure hypercholesterolemia, unspecified Vitamin D 25-OH Total 6 Months E55.9 - Vitamin D deficiency, unspecified Medications: New cholecalciferol (vitamin D3) 50 mcg PO DAILY 90 caps 3RF 90 days E55.9 - Vitamin D deficiency, unspecified Refilled lisinopril 20 mg PO DAILY 90 tabs 3RF 90 days simvastatin 40 mg PO BEDTIME 90 tabs 3RF 90 days Coding Level of Care Code Est Pt Prev Care 40-64y(09836) Diagnoses Annual physical exam Z00.00 Benign essential hypertension I10 Pure hypercholesterolemia E78.00 Impaired fasting glucose R73.01 Vitamin D deficiency E55.9 Obstructive sleep apnea G47.33 Morbid obesity with BMI of 40.0-44.9, adult E66.01; Z68.41
[2023-12-28 18:13] VITALS: BP 156/90
== END 2023-12-28 18:21 | disposition home or self-care (01) ==
PROVIDERS: PCP Internal Medicine; Visit Provider Internal Medicine
DX: Z00.00 Encounter for general adult medical examination without abnormal findings (principal); E66.01 Morbid (severe) obesity due to excess calories; Z68.41 Body mass index [BMI] 40.0-44.9, adult; I10 Essential (primary) hypertension; E78.00 Pure hypercholesterolemia, unspecified; R73.01 Impaired fasting glucose; E55.9 Vitamin D deficiency, unspecified; G47.33 Obstructive sleep apnea (adult) (pediatric)
CPT/HCPCS: 99396

== ENCOUNTER 2024-07-01 06:03 | Outpatient (REF) | payer OTHER, SELFPAY ==
[2024-07-01 06:29] LABS: MANUAL DIFF FLAG NO
[2024-07-01 07:25] LABS: Basophils Absolute Auto 0.1 X10*3/uL (0.0-0.2); Basophils Percent Auto 0.8 % (0-2); Eosinophils Absolute Auto 0.2 X10*3/uL (0.0-0.4); Eosinophils Percent Auto 2.7 % (0-4); Hematocrit 45.2 % (42.0-52.0); Hemoglobin 15.7 g/dl (14.0-18.0); Imm Gran Abs Auto 0.03 X10*3/uL (0.00-0.03); Imm Gran Pct Auto 0.4 % (0.0-0.4); Lymphocytes Absolute Auto 2.1 X10*3/uL (1.2-4.9); Lymphocytes Percent Auto 24.5 % (20-40); Mean Corpuscular HGB Conc 34.7 g/dl (31.0-36.0); Mean Corpuscular Hemoglobin 31.8 pg (27.0-33.0); Mean Corpuscular Volume 91.5 fL (80.0-98.0); Mean Platelet Volume 9.8 fL (9.4-12.4); Monocytes Absolute Auto 0.5 X10*3/uL (0.1-1.2); Monocytes Percent Auto 6.3 % (2-11); Neutrophils Absolute Auto 5.5 x10*3/uL (2.0-8.3); Neutrophils Percent Auto 65.3 % (45-73); Platelet Count 214 X10*3/uL (160-400); Red Blood Count 4.94 X10*6/uL (4.60-5.80); Red Cell Distribution Width 12.2 % (11.0-16.0); White Blood Count 8.4 X10*3/uL (4.8-10.8)
[2024-07-01 07:52] LABS: Appearance Urine Clear; Color Urine Yellow; Glucose Urine UA Negative (Negative); Leukocyte Esterase Urine Negative (Negative); Nitrite Urine Negative (Negative); PH 5.5 (5.0-9.0); Specific Gravity - Urine 1.015 (1.005-1.025); Urine Blood Negative (Negative); Urine Ketones Negative (Negative); Urine Protein Negative (Neg-Trace)
[2024-07-01 08:11] LABS: Alanine Aminotransferase 39 U/L (0-40); Alkaline Phosphatase 67 U/L (39-117); Anion Gap 11 (12-20); Aspartate Amino Transferase 25 U/L (5-37); Bilirubin Total 0.7 mg/dL (0.0-1.0); Blood Urea Nitrogen 17 mg/dL (9-16); Calcium 9.1 mg/dL (8.4-10.2); Carbon Dioxide 26 mmol/L (22-29); Chloride 105 mmol/L (96-108); Cholesterol 151 mg/dL (<200); Estimated Glomerular Filt Rate > 60; Glucose Fasting 110 mg/dL (60-99); HDL Cholesterol 43 mg/dL (>40); LDL Cholesterol Calculated 85 mg/dL (<100); Potassium 4.9 mmol/L (3.3-5.1); Sodium 137 mmol/L (135-145); Total Protein 7.7 g/dL (6.5-8.0); Triglycerides 117 mg/dL (<150)
[2024-07-01 08:28] LABS: TSH reflex Free T4 1.21 uIU/mL (0.32-4.0); Vitamin D 25-OH Total 30.7 ng/mL (>30)
== END 2024-07-01 06:04 | disposition home or self-care (01) ==
LOC: HO.LAB 06:03
PROVIDERS: PCP Internal Medicine; Visit Provider Internal Medicine
DX: D64.9 Anemia, unspecified (principal); E78.00 Pure hypercholesterolemia, unspecified; R30.0 Dysuria; E55.9 Vitamin D deficiency, unspecified
CPT/HCPCS: 36415; 80053; 80061; 81003; 82306; 84443; 85025

== ENCOUNTER 2024-07-04 15:59 | Outpatient (AMB) | payer OTHER, SELFPAY ==
[2024-07-04 16:24] VITALS: BP 130/76; PULSE 84; O2SAT 96; BMI 42.9
--- NOTE | 2024-07-04 16:24 | A.OFFPC_ITS ---
Vital Signs 07/04/24 16:24 Height 5 ft 6 in Weight 266 lb 2 oz BMI 42.9 BP 130/76 Blood Pressure Location Lt brachial Position Sitting Pulse 84 Pulse Source Pulse Oximeter Pulse Oximetry (%) 96 Oxygen Delivery Method Room Air Intake Visit Reasons: 6 month f/u Systems Requirements Planner Required: No Accompanied by: Self / Same As Patient Allergies No Known Allergies Allergy (Verified 07/04/24 16:58) Medication List - Last Reconciled 07/04/24 by Ruben Kay MD cholecalciferol (vitamin D3) 50 mcg PO DAILY 90 days CPAP (CPAP Machine/Device) As directed lisinopril 20 mg PO DAILY 90 days simvastatin 40 mg PO BEDTIME 90 days Tobacco use date assessed: 07/04/24 Dental Screening Dental Screen Date: 07/04/24 Did you have a dental visit in the last 12 months?: No Did you have a dental problem in the last 6 months where you did not have access to dental care?: No Was dental information given to patient?: Patient has dentist HPI 6 month f/u HPI Details Patient comes in today for his follow-up visit States that he feels okay He denies any headaches or dizziness Denies any chest pains, no shortness a breath No nausea/vomiting, no abdominal pain No change in bowel habits noted He had his follow-up labs done a few days ago - to discuss his results [facility] Medical History Vitamin D deficiency Obstructive sleep apnea Impaired fasting glucose Morbid obesity with BMI of 40.0-44.9, adult Pure hypercholesterolemia Benign essential hypertension Hyperlipidemia Surgical History H/O left inguinal hernia repair H/O vasectomy H/O colonoscopy (~08/27/16) Family History Mother No problems noted. Father Diabetes Social History Housing: House Alcohol intake: never Patient Tobacco Use Status: Never used Tobacco e-Cigarette/Vaping Use: Never Used Second Hand Smoke Exposure: Yes service: No Current occupational status: employed Current occupational exposures/hazards: No Cognitive needs: No Hearing needs: No Vision needs: No Questionnaire PHQ-9 Over the last 2 weeks, how often have you been bothered by any of the following problems? 1. Little interest or pleasure in doing things: not at all 2. Feeling down, depressed, or hopeless: not at all 3. Trouble falling or staying asleep, or sleeping too much: not at all 4. Feeling tired or having little energy: not at all 5. Poor appetite or overeating: not at all 6. Feeling bad about yourself - or that you are a failure or have let yourself or your family down: not at all 7. Trouble concentrating on things, such as reading the newspaper or watching television: not at all 8. Moving or speaking so slowly that other people could have noticed. Or the opposite - being so fidgety or restless that you have been moving around a lot more than usual: not at all 9. Thoughts that you would be better off or of hurting yourself in some way: not at all Total score: 0 Depression Screening Interpretation: Negative Depression Screening Done: Yes 74346 - PHQ-9 Billing: Yes Source: Developed by Drs. Blayne Mao, Elizabeth Herr, Jabari Sanchez and colleagues, with an educational subhash from [employer]. Thrive Questionnaire Date Thrive assessed: 07/04/24 I am a: Patient What is your living situation today?: I have a steady place to live Within the past 12 months, did the food you bought not last and you didn't have the money to get more?: Never true Within the past 12 months, did you worry whether your food would run out before you got money to buy more?: Never true Do you have trouble paying for medicines?: No Do you have trouble getting transportation to medical appointments?: No Do you have trouble paying your heating and electricity bill?: No Do you have trouble taking care of your child, family member or friend?: No Do you have trouble with day-to-day activities such as bathing, preparing meals, shopping, managing finances, etc.?: No Are you currently unemployed and looking for a job?: No Are you interested in more education?: No Please select the resources that you would like help with: None Currently or been in a relationship where the following occur: No concerns reported THRIVE Score: 0 AUDIT C Alcohol Use Questionnaire (AUDIT-C) 1. How often do you have a drink containing alcohol?: Never 3. How often do you have six or more drinks on one occasion?: Never Total Score: 0 Score Reviewed/Action Taken: Yes NORIS-7 AMB Questionnaire NORIS-7 Date NORIS - 7 assessed: 07/04/24 Feeling nervous, anxious, or on edge: 0 = Not at all Not being able to stop or control worryin = Not at all Worrying too much about different things: 0 = Not at all Trouble relaxin = Not at all Being so restless that it is hard to sit still: 0 = Not at all Becoming easily annoyed or irritable: 0 = Not at all Feeling afraid as if something awful might happen: 0 = Not at all Total NORIS-7 score (0-4 normal; 5-9 mild; 10-14 moderate; 15-21 severe): 0 Source: Developed by Drs. Blayne Mao, Elizabeth Herr, Jabari Sanchez and colleagues, with an educational subhash from [employer]. Review of Systems Const Denies chills, Denies fatigue, Denies fever(s) and Denies headache(s) ENT Denies dysphagia, Denies dizziness, Denies otalgia, Denies headache(s), Denies neck pain, Denies odynophagia and Denies sore throat Card Denies chest pain, Denies irregular heart rhythm, Denies palpitations and Denies dyspnea Resp Denies chest congestion, Denies cough and Denies dyspnea GI Denies abdominal pain, Denies constipation, Denies dysphagia, Denies heartburn, Denies diarrhea, Denies nausea, Denies odynophagia and Denies vomiting Denies difficulty urinating, Denies dysuria and Denies urinary frequency Musc Denies back pain, Denies arthralgias and Denies neck pain Skin/Breast Denies rash Neuro Denies dizziness, Denies headache(s) and Denies paresthesias Psych Denies difficulty concentrating Endo Denies fatigue and Denies palpitations Physical exam (Primary Care) Vital Signs: Last Vital Signs Pulse 84 07/04/24 16:24 BP 130/76 07/04/24 16:24 Pulse Ox 96 07/04/24 16:24 Oxygen Delivery Method Room Air 07/04/24 16:24 BMI result Body Mass Index 42.9 Tobacco/Smoking Status: Tobacco use Status Tobacco use date assessed 07/04/24 07/04/24 16:32 Patient Tobacco Use Status Never used Tobacco 07/04/24 16:32 e-Cigarette/Vaping Use Never Used 07/04/24 16:32 PHQ-9: PHQ-9 Score PHQ-9: Total score 0 07/04/24 16:59 Depression Screening Interpretation: Negative Thrive Assessment: Date of Thrive Assessment Date Thrive assessed 07/04/24 07/04/24 16:32 Currently or been in a relationship where the following occur: No concerns reported Const General: no acute distress and alert HENMT Ears: TM's normal bilaterally and EAC's normal Throat: Yes posterior oropharynx normal and Yes tonsils normal (no TP congestion) Neck Neck: Yes supple and No lymphadenopathy Thyroid: Thyroid normal Resp Auscultation: clear to auscultation bilaterally, no rales and no wheezes Cardio Rate: regular rate Rhythm: regular rhythm Heart sounds: no murmurs GI Palpation (GI): Soft to palpation and nontender Auscultation: normal bowel sounds General: Yes no CVA tenderness Back/Spine/Pelvis Back: no CVA tenderness Thoracic/Lumbar Spine: No lumbar spinal tenderness Skin Rashes: no rashes Extrem General: Yes no clubbing, cyanosis or edema Results Reviewed Results Reviewed: Laboratory Tests 07/01/24 07/01/24 06:10 06:29 WBC 8.4 Hgb 15.7 Hct 45.2 Plt Count 214 Sodium 137 Potassium 4.9 Creatinine 0.96 Estimated GFR > 60 Fasting Glucose 110 H Calcium 9.1 AST 25 ALT 39 Triglycerides 117 Cholesterol 151 LDL Cholesterol, Calc 85 HDL Cholesterol 43 25-OH Vitamin D Total 30.7 TSH 1.21 Ur Specific [place] 1.015 Urine Protein Negative Urine Glucose (UA) Negative Urine Blood Negative Urine Nitrite Negative Ur Leukocyte Esterase Negative Coding Level of Care Code Est Pt Level 4 (01511) Diagnoses Benign essential hypertension I10 Pure hypercholesterolemia E78.00 Impaired fasting glucose R73.01 Vitamin D deficiency E55.9 Obstructive sleep apnea G47.33 Morbid obesity with BMI of 40.0-44.9, adult E66.01; Z68.41 Additional Codes PHQ-9 - 10519 - PHQ-9 Billing: Yes ([id number]) Assessment & Plan Assessment & Plan (1) Benign essential hypertension: Code(s): I10 - Essential (primary) hypertension Category: Medical Plan: Reinforced low sodium diet - goal is systolic BP of 120 to 130 mm or less Continue Lisinopril 20 mg QD Patient is reminded to monitor and check his blood pressure regularly (2) Pure hypercholesterolemia: Code(s): E78.00 - Pure hypercholesterolemia, unspecified Category: Medical Plan: Results of his labs done a few days ago reviewed and discussed with patient Reinforced low cholesterol diet Continue Simvastatin 40 mg Q HS Will recheck his labs and fasting lipids in 6 months for follow up (3) Impaired fasting glucose: Code(s): R73.01 - Impaired fasting glucose Category: Medical Plan: His FBS was again slightly elevated at 110 mg/dl on his recent labs; his HgbA1c was normal at 5.6% when previously checked Reinforced low calorie/low carb diet; exercise as tolerated (4) Vitamin D deficiency: Code(s): E55.9 - Vitamin D deficiency, unspecified Category: Medical Plan: Continue Vitamin D3 2000 units QD (5) Obstructive sleep apnea: Comment: has moderately severe obstructive sleep apnea based on his home sleep study results - recommend CPAP therapy with auto PAP mode and setting of 6 - 20 cm Code(s): G47.33 - Obstructive sleep apnea (adult) (pediatric) Category: Medical Plan: His home sleep study done in July 2023 revealed (+) moderately severe obstructive sleep apnea, and he was recommended to start CPAP therapy with auto PAP mode and setting of 6 to 20 cm water States that he has been using his CPAP device regularly for a few months now and feels that it has helped him a lot - notes that he has been feeling less fatigued and more energetic during the day He also seems to wake up much less often in the middle of the night and tends to sleep longer with regular use of his PAP device He is advised to continue using his CPAP device regularly (6) Morbid obesity with BMI of 40.0-44.9, adult: Code(s): E66.01 - Morbid (severe) obesity due to excess calories; Z68.41 - Body mass index [BMI] 40.0-44.9, adult Category: Medical Plan: Reinforced diet/exercise as tolerated/lose weight Plan Follow up in 6 months Orders: Orders Complete Blood Count Auto Diff 6 Months D64.9 - Anemia, unspecified UA CC w/rflx Micro + Cult 6 Months R30.0 - Dysuria Vitamin D 25-OH Total 6 Months E55.9 - Vitamin D deficiency, unspecified Hemoglobin A1c 6 Months R73.01 - Impaired fasting glucose Comprehensive [place]. Panel Fast 6 Months E78.00 - Pure hypercholesterolemia, unspecified Lipid Panel 6 Months E78.00 - Pure hypercholesterolemia, unspecified
== END 2024-07-04 17:09 | disposition home or self-care (01) ==
PROVIDERS: PCP Internal Medicine; Visit Provider Internal Medicine
DX: I10 Essential (primary) hypertension (principal); E66.01 Morbid (severe) obesity due to excess calories; Z68.41 Body mass index [BMI] 40.0-44.9, adult; E78.00 Pure hypercholesterolemia, unspecified; R73.01 Impaired fasting glucose; E55.9 Vitamin D deficiency, unspecified; G47.33 Obstructive sleep apnea (adult) (pediatric)

== ENCOUNTER → 2024-07-04 15:59 | Outpatient (BNVA) | payer OTHER, SELFPAY | PROVIDERS: PCP Internal Medicine; Visit Provider Internal Medicine | DX: I10 Essential (primary) hypertension (principal); E78.00 Pure hypercholesterolemia, unspecified; R73.01 Impaired fasting glucose; E55.9 Vitamin D deficiency, unspecified; G47.33 Obstructive sleep apnea (adult) (pediatric); E66.01 Morbid (severe) obesity due to excess calories; Z68.41 Body mass index [BMI] 40.0-44.9, adult; Z79.899 Other long term (current) drug therapy | CPT/HCPCS: 96127 ==

== ENCOUNTER 2025-03-20 06:13 | Outpatient (REF) | payer OTHER, SELFPAY ==
[2025-03-20 06:32] LABS: MANUAL DIFF FLAG NO
[2025-03-20 07:15] LABS: Hematocrit 47.5 % (42.0-52.0); Hemoglobin 16.0 g/dl (14.0-18.0); Imm Gran Abs Auto 0.04 X10*3/uL (0.00-0.03); Imm Gran Pct Auto 0.4 % (0.0-0.4); Lymphocytes Absolute Auto 2.1 X10*3/uL (1.2-4.9); Mean Corpuscular HGB Conc 33.7 g/dl (31.0-36.0); Mean Corpuscular Hemoglobin 31.2 pg (27.0-33.0); Mean Corpuscular Volume 92.6 fL (80.0-98.0); NRBC Abs Auto 0.000 X10*3/uL (0.0-0.012); NRBC Pct Auto 0.0 /100WBC (0.0-0.2); Platelet Count 203 X10*3/uL (160-400); Red Blood Count 5.13 X10*6/uL (4.60-5.80); White Blood Count 8.9 X10*3/uL (4.8-10.8)
[2025-03-20 07:27] LABS: Hemoglobin A1C 167.0967 umol/L; Total Hemoglobin (HGBA1C) 4200.9864 umol/L
[2025-03-20 07:53] LABS: Alanine Aminotransferase 40 U/L (0-40); Albumin Level 4.4 g/dL (3.5-5.0); Alkaline Phosphatase 71 U/L (39-117); Anion Gap 13 (12-20); Aspartate Amino Transferase 24 U/L (5-37); Blood Urea Nitrogen 17 mg/dL (9-16); Calcium 9.5 mg/dL (8.4-10.2); Carbon Dioxide 25 mmol/L (22-29); Chloride 105 mmol/L (96-108); Cholesterol 186 mg/dL (<200); Estimated Glomerular Filt Rate > 60; HDL Cholesterol 45 mg/dL (>40); Potassium 4.1 mmol/L (3.3-5.1); Sodium 139 mmol/L (135-145); Total Protein 7.6 g/dL (6.5-8.0); Triglycerides 142 mg/dL (<150)
[2025-03-20 07:57] LABS: Appearance Urine Clear; Glucose Urine UA Negative (Negative); PH 5.5 (5.0-9.0); Specific Gravity - Urine 1.020 (1.005-1.025)
== END 2025-03-20 06:14 | disposition home or self-care (01) ==
LOC: HO.LAB 06:13
PROVIDERS: PCP Internal Medicine; Visit Provider Internal Medicine
DX: R73.01 Impaired fasting glucose (principal); D64.9 Anemia, unspecified; E78.00 Pure hypercholesterolemia, unspecified; E55.9 Vitamin D deficiency, unspecified; R30.0 Dysuria
CPT/HCPCS: 36415; 80053; 80061; 81003; 82306; 83036; 85025

== ENCOUNTER 2025-04-04 15:54 | Outpatient (AMB) | payer OTHER, SELFPAY ==
--- NOTE | 2025-04-04 16:07 | MHC.PC.OV ---
Vital Signs 04/04/25 16:09 Height 5 ft 6 in Weight 255 lb 2 oz BMI 41.2 BP 130/90 H Blood Pressure Location Lt brachial Position Sitting Pulse 87 Pulse Source Pulse Oximeter Temp 97.1 F Temp Source Temporal Artery Scan Pulse Oximetry (%) 97 Oxygen Delivery Method Room Air Intake Visit Reasons: annual exam, resched Intake Note: Patient is here today for a physical. Manager Control Required: No Call Person: Not Required per policy Accompanied by: Self / Same As Patient Allergies No Known Allergies Allergy (Verified 04/04/25 16:37) Medication List - Last Reconciled 04/04/25 by Ruben Kay MD cholecalciferol (vitamin D3) 50 mcg PO DAILY 90 days CPAP (CPAP Machine/Device) As directed lisinopril 20 mg PO DAILY 90 days simvastatin 40 mg PO BEDTIME 90 days Tobacco use date assessed: 04/04/25 Dental Screening Dental Screen Date: 04/04/25 Did you have a dental visit in the last 12 months?: No Did you have a dental problem in the last 6 months where you did not have access to dental care?: No Was dental information given to patient?: Patient has dentist HPI annual exam, resched HPI Details Patient comes in today for his annual physical examination States that she feels okay She denies any headaches or dizziness Denies any chest pains, no shortness of breath No nausea/vomiting, no abdominal pain No change in bowel habits noted He denies any acute urinary symptoms States that his left knee started acting up a few months ago in September 2024 - relates that his knee was feeling sore for a while but the pain subsided after some time States that his knee starting acting up again lately, with the back of his left knee feeling stiff Notes that he cannot fully extend his left knee/leg lately as a result but he denies experiencing any pain in his knee States that he normally does a lot of walking and is on his knees a lot at work so his current knee symptoms have been somewhat limiting for him He had his follow up labs done a couple of weeks ago - to discuss his results He had his screening colonoscopy done back in 2016 and will be due for repeat colonoscopy in 2 years (2026) [facility] Medical History Vitamin D deficiency Obstructive sleep apnea Impaired fasting glucose Morbid obesity with BMI of 40.0-44.9, adult Pure hypercholesterolemia Benign essential hypertension Hyperlipidemia Surgical History H/O left inguinal hernia repair H/O vasectomy H/O colonoscopy (~08/27/16) Family History Mother No problems noted. Father Diabetes Social History Housing: House Alcohol intake: never Patient Tobacco Use Status: Never used Tobacco e-Cigarette/Vaping Use: Never Used Second Hand Smoke Exposure: Yes service: No Current occupational status: employed Current occupational exposures/hazards: No Cognitive needs: No Hearing needs: No Vision needs: No Questionnaire PHQ-9 Over the last 2 weeks, how often have you been bothered by any of the following problems? 1. Little interest or pleasure in doing things: not at all 2. Feeling down, depressed, or hopeless: not at all 3. Trouble falling or staying asleep, or sleeping too much: not at all 4. Feeling tired or having little energy: not at all 5. Poor appetite or overeating: not at all 6. Feeling bad about yourself - or that you are a failure or have let yourself or your family down: not at all 7. Trouble concentrating on things, such as reading the newspaper or watching television: not at all 8. Moving or speaking so slowly that other people could have noticed. Or the opposite - being so fidgety or restless that you have been moving around a lot more than usual: not at all 9. Thoughts that you would be better off or of hurting yourself in some way: not at all Total score: 0 Depression Screening Interpretation: Negative Depression Screening Done: Yes 68180 - PHQ-9 Billing: Yes Source: Developed by Drs. Blayne Mao, Elizabeth Herr, Jabari Sanchez and colleagues, with an educational subhash from [employer]. Thrive Questionnaire Date Thrive assessed: 04/04/25 I am a: Patient What is your living situation today?: I have a steady place to live Within the past 12 months, did the food you bought not last and you didn't have the money to get more?: Never true Within the past 12 months, did you worry whether your food would run out before you got money to buy more?: Never true Do you have trouble paying for medicines?: No Do you have trouble getting transportation to medical appointments?: No Do you have trouble paying your heating and electricity bill?: No Do you have trouble taking care of your child, family member or friend?: No Do you have trouble with day-to-day activities such as bathing, preparing meals, shopping, managing finances, etc.?: No Are you currently unemployed and looking for a job?: No Are you interested in more education?: No Please select the resources that you would like help with: None Currently or been in a relationship where the following occur: No concerns reported THRIVE Score: 0 AUDIT C Alcohol Use Questionnaire (AUDIT-C) 1. How often do you have a drink containing alcohol?: Never Total Score: 0 Score Reviewed/Action Taken: Yes NORIS-7 AMB Questionnaire NORIS-7 Date NORIS - 7 assessed: 04/04/25 Feeling nervous, anxious, or on edge: 0 = Not at all Not being able to stop or control worryin = Not at all Worrying too much about different things: 0 = Not at all Trouble relaxin = Not at all Being so restless that it is hard to sit still: 0 = Not at all Becoming easily annoyed or irritable: 0 = Not at all Feeling afraid as if something awful might happen: 0 = Not at all Total NORIS-7 score (0-4 normal; 5-9 mild; 10-14 moderate; 15-21 severe): 0 Source: Developed by Drs. Blayne Mao, Elizabeth Herr, Jabari Sanchez and colleagues, with an educational subhash from [employer]. Review of Systems Const Denies chills, Denies fatigue, Denies fever(s), Denies headache(s), Denies malaise and Denies weakness Eyes Denies blurry vision, Denies change in vision, Denies irritation and Denies itchy eyes ENT Denies dysphagia, Denies dizziness, Denies otalgia, Denies headache(s), Denies nasal congestion, Denies neck pain, Denies odynophagia and Denies sore throat Card Denies chest pain, Denies rapid heart rate, Denies irregular heart rhythm, Denies palpitations and Denies dyspnea Resp Denies chest congestion, Denies cough, Denies dyspnea and Denies wheezing GI Denies abdominal pain, Denies bloating, Denies constipation, Denies dysphagia, Denies heartburn, Denies diarrhea, Denies nausea, Denies odynophagia and Denies vomiting Denies hematuria, Denies difficulty urinating, Denies dysuria, Denies urinary frequency and Denies urinary urgency Musc Denies back pain, Reports arthralgias (in the left knee - see HPI), Denies joint swelling, Denies muscle weakness and Denies neck pain Skin/Breast Denies change in pigmentation, Denies lesions, Denies rash and Denies unusual bruising Neuro Denies dizziness, Denies headache(s), Denies paresthesias and Denies weakness Endo Denies fatigue and Denies palpitations Aller/Immun Denies itchy eyes and Denies wheezing Physical exam (Primary Care) Vital Signs: Last Vital Signs Temp 97.1 F 04/04/25 16:09 Pulse 87 04/04/25 16:09 BP 130/90 H 04/04/25 16:09 Pulse Ox 97 04/04/25 16:09 Oxygen Delivery Method Room Air 04/04/25 16:09 BMI result Body Mass Index 41.2 Tobacco/Smoking Status: Tobacco use Status Tobacco use date assessed 04/04/25 04/04/25 16:14 Patient Tobacco Use Status Never used Tobacco 04/04/25 16:14 e-Cigarette/Vaping Use Never Used 04/04/25 16:14 PHQ-9: PHQ-9 Score PHQ-9: Total score 0 04/04/25 16:40 Depression Screening Interpretation: Negative Thrive Assessment: Date of Thrive Assessment Date Thrive assessed 04/04/25 04/04/25 16:14 Currently or been in a relationship where the following occur: No concerns reported Const General: no acute distress, alert and awake Orientation/consciousness: patient oriented x3 HENMT Head: Yes normocephalic and Yes atraumatic Ears: external ears normal, TM's normal bilaterally and EAC's normal General nose exam: No nasal discharge present Face and sinus: Yes normal facial exam and Yes sinuses nontender Teeth and gingiva: dentition normal Throat: Yes posterior oropharynx normal and Yes tonsils normal (no TP congestion) Eyes Eyelids: Yes eyelids normal Conjunctivae: conjunctivae normal Pupils: Equal, round and reactive pupils present EOM: EOMs intact bilaterally Neck Neck: Yes supple and No lymphadenopathy Thyroid: Thyroid normal Resp Auscultation: clear to auscultation bilaterally, no rales and no wheezes Cardio Rate: regular rate Rhythm: regular rhythm Heart sounds: no murmurs GI Palpation (GI): Soft to palpation, nontender and No hepatosplenomegaly present Auscultation: normal bowel sounds General: Yes no CVA tenderness Back/Spine/Pelvis Back: no CVA tenderness Thoracic/Lumbar Spine: thoracic and lumbar spine normal to inspection Skin Lesions: no lesions Rashes: no rashes Neuro General: patient oriented x3, moves all extremities, no focal motor deficits and CN's II-XI intact bilaterally Cranial nerves: Yes Equal, round and reactive pupils present Cognition (Neuro): normal cognition Gait exam (Neuro): Normal gait present Extrem General: Yes no clubbing, cyanosis or edema Left lower extremity: knee (mild discomfort over the left popliteal area) Details: no swelling Results Reviewed Results Reviewed: Laboratory Tests 03/20/25 03/20/25 06:27 06:30 WBC 8.9 Hgb 16.0 Hct 47.5 Plt Count 203 Sodium 139 Potassium 4.1 Creatinine 0.98 Estimated GFR > 60 Fasting Glucose 113 H Hemoglobin A1c % 5.8 Calcium 9.5 AST 24 ALT 40 Triglycerides 142 Cholesterol 186 LDL Cholesterol, Calc 113 H HDL Cholesterol 45 25-OH Vitamin D Total 36.9 Ur Specific [place] 1.020 Urine Protein Negative Urine Glucose (UA) Negative Urine Blood Negative Urine Nitrite Negative Ur Leukocyte Esterase Negative Coding Level of Care Code Est Pt Prev Care 40-64y(03638) Diagnoses Annual physical exam Z00.00 Benign essential hypertension I10 Pure hypercholesterolemia E78.00 Impaired fasting glucose R73.01 Vitamin D deficiency E55.9 Obstructive sleep apnea G47.33 Injury of left knee, sequela S89.92XS Encounter type: sequela Morbid obesity with BMI of 40.0-44.9, adult E66.01; Z68.41 Additional Codes PHQ-9 - 48011 - PHQ-9 Billing: Yes ([id number]) Assessment & Plan Assessment & Plan (1) Annual physical exam: Code(s): Z00.00 - Encounter for general adult medical examination without abnormal findings Category: Medical Plan: Results of his labs done a couple of weeks ago reviewed and discussed with patient He had his screening colonoscopy done back in 2016 and will be due for repeat colonoscopy in 2 years (2026) (2) Benign essential hypertension: Code(s): I10 - Essential (primary) hypertension Category: Medical Plan: Reinforced low sodium diet - goal is systolic BP of 120 to 130 mm or less Continue Lisinopril 20 mg QD Patient is reminded to monitor and check his blood pressure regularly (3) Pure hypercholesterolemia: Code(s): E78.00 - Pure hypercholesterolemia, unspecified Category: Medical Plan: Reinforced low cholesterol diet Continue Simvastatin 40 mg Q HS Will recheck his labs and fasting lipids in 6 months for follow up (4) Impaired fasting glucose: Code(s): R73.01 - Impaired fasting glucose Category: Medical Plan: His FBS was again slightly elevated at 113 mg/dl on his recent labs; his HgbA1c was normal at 5.8% Reinforced low calorie/low carb diet; exercise as tolerated (5) Vitamin D deficiency: Code(s): E55.9 - Vitamin D deficiency, unspecified Category: Medical Plan: Continue Vitamin D3 2000 units QD (6) Obstructive sleep apnea: Comment: has moderately severe obstructive sleep apnea based on his home sleep study results - recommend CPAP therapy with auto PAP mode and setting of 6 - 20 cm Code(s): G47.33 - Obstructive sleep apnea (adult) (pediatric) Category: Medical Plan: His home sleep study done in July 2023 revealed (+) moderately severe obstructive sleep apnea, and he was recommended to start CPAP therapy with auto PAP mode and setting of 6 to 20 cm water States that he has been using his CPAP device regularly for a few months now and feels that it has helped him a lot - notes that he has been feeling less fatigued and more energetic during the day He also seems to wake up much less often in the middle of the night and tends to sleep longer with regular use of his PAP device He is advised to continue using his CPAP device regularly (7) Left knee injury: Code(s): S89.92XA - Unspecified injury of left lower leg, initial encounter Category: Medical Qualifiers: Encounter type: sequela Qualified Code(s): S89.92XS - Unspecified injury of left lower leg, sequela Plan: Will send patient for x-rays of the left knee for further evaluation (8) Morbid obesity with BMI of 40.0-44.9, adult: Code(s): E66.01 - Morbid (severe) obesity due to excess calories; Z68.41 - Body mass index [BMI] 40.0-44.9, adult Category: Medical Plan: Reinforced diet/exercise as tolerated/lose weight Plan Follow up in 6 months Orders: Orders Comprehensive [place]. Panel Fast 6 Months E78.00 - Pure hypercholesterolemia, unspecified Lipid Panel 6 Months E78.00 - Pure hypercholesterolemia, unspecified Hemoglobin A1c 6 Months R73.01 - Impaired fasting glucose XR knee LT 4V 04/05/25 M25.562 - Pain in left knee Complete Blood Count Auto Diff 6 Months D64.9 - Anemia, unspecified
[2025-04-04 16:09] VITALS: BP 130/90; PULSE 87; TEMP 36.2; O2SAT 97; BMI 41.2
== END 2025-04-04 16:53 | disposition home or self-care (01) ==
LOC: HO.HMCH 15:54
PROVIDERS: PCP Internal Medicine; Visit Provider Internal Medicine
DX: Z00.00 Encounter for general adult medical examination without abnormal findings (principal); I10 Essential (primary) hypertension; E66.01 Morbid (severe) obesity due to excess calories; Z68.41 Body mass index [BMI] 40.0-44.9, adult; E78.00 Pure hypercholesterolemia, unspecified; R73.01 Impaired fasting glucose; E55.9 Vitamin D deficiency, unspecified; G47.33 Obstructive sleep apnea (adult) (pediatric); S89.92XS Unspecified injury of left lower leg, sequela

== ENCOUNTER → 2025-04-04 15:54 | Outpatient (BNVA) | payer OTHER, SELFPAY | PROVIDERS: PCP Internal Medicine; Visit Provider Internal Medicine | DX: Z00.00 Encounter for general adult medical examination without abnormal findings (principal); I10 Essential (primary) hypertension; E78.00 Pure hypercholesterolemia, unspecified; R73.01 Impaired fasting glucose; E55.9 Vitamin D deficiency, unspecified; G47.33 Obstructive sleep apnea (adult) (pediatric); E66.01 Morbid (severe) obesity due to excess calories; S89.92XS Unspecified injury of left lower leg, sequela; X58.XXXS Exposure to other specified factors, sequela; Z68.41 Body mass index [BMI] 40.0-44.9, adult; D64.9 Anemia, unspecified; M25.562 Pain in left knee | CPT/HCPCS: 96127 ==

== ENCOUNTER 2025-04-05 15:25 | Outpatient (REF) | payer OTHER, SELFPAY ==
--- NOTE | ~2025-04-05 | XR_ITS ---
EXAMINATION: XR KNEE 4 OR MORE VIEWS LEFT HISTORY: M25.562 - Pain in left knee COMPARISON: There are no prior studies available for comparison. FINDINGS: Five views of the left knee are submitted. Osseous mineralization is normal. There is no fracture or dislocation. The joint spaces are preserved. The soft tissues are unremarkable. There is no joint effusion. XR/XR knee LT 4V IMPRESSION: Unremarkable examination of the left knee. Electronically signed by: Blayne Pyle MD 04/05/2025 03:56 PM EDT
== END 2025-04-05 15:26 | disposition home or self-care (01) ==
LOC: HO.XRAY 15:25
PROVIDERS: PCP Internal Medicine; Visit Provider Internal Medicine
DX: M25.562 Pain in left knee (principal)
CPT/HCPCS: 73564

== ENCOUNTER → 2025-04-05 15:29 | Outpatient (BNV) | payer OTHER, SELFPAY | PROVIDERS: PCP Internal Medicine; Visit Provider Radiology Diagnostic Radiology | DX: M25.562 Pain in left knee (principal) | CPT/HCPCS: 73564 ==